=== PATIENT | male | born 1955 | race Caucasian/White ===

== ENCOUNTER 2018-08-09 15:54 | Outpatient (CLI) | payer OTHER ==
--- NOTE | 2018-08-10 15:45 | XRAY Report ---
Reason: TRAUMA ARTHROPATHY OF SPINE,THORACIC,NECK PAIN,LBP Procedure Date: 08/09/2018 Accession Number: [id number] / [id number] Procedure: XR - Thoracic Spine 3 View CPT Code: FULL RESULT: EXAM: THORACIC SPINE RADIOGRAPHY EXAM DATE: 08/09/2018 04:39 PM. CLINICAL HISTORY: Traumatic arthropathy of thoracic spine COMPARISON: None. TECHNIQUE: 3 views. FINDINGS: Alignment: Minimal right convex curvature centered at T4-T5. No spondylolisthesis. Bones: No fractures or bone lesions. Disks: Multilevel bridging anterolateral ossification of the mid/lower thoracic spine, compatible with diffuse idiopathic skeletal hyperostosis (DISH). Disk space heights are maintained. Soft Tissues: Normal. The visualized lungs and cardiomediastinal silhouette are normal. IMPRESSION: 1. Minimal right convex curvature of the upper thoracic spine. 2. Mid/lower thoracic spine DISH. 3. No acute bony abnormality. [facility]
--- NOTE | 2018-08-10 15:47 | XRAY Report ---
Reason: TRAUMA ARTHROPATHY OF SPINE,THORACIC,NECK PAIN,LBP Procedure Date: 08/09/2018 Accession Number: [id number] / [id number] Procedure: XR - Lumbar Spine Complete CPT Code: FULL RESULT: EXAM: LUMBOSACRAL SPINE RADIOGRAPHY EXAM DATE: 08/09/2018 04:39 PM. CLINICAL HISTORY: Low back pain. COMPARISONS: THORACIC SPINE 3 VIEW 08/09/2018 4:03 PM. TECHNIQUE: 4 views. FINDINGS: Alignment: Minimal left convex curvature centered at L1-L2 and right convex curvature centered at L4-L5. No spondylolisthesis. Bones: Five [id number] lumbar vertebral bodies are present. No fractures or bone lesions. Disks: Multilevel bridging anterolateral ossification from the visualized lower thoracic spine through L1-L2, compatible with diffuse idiopathic skeletal hyperostosis (DISH). Mild disk height loss and endplate degenerative change at L2-L3. Mild anterior end plate osteophytosis at L3-L4 through L5-S1. Facets: No significant degenerative changes. Sacroiliac Joints: Unremarkable. Soft Tissues: Normal. The visualized bowel gas pattern is normal. IMPRESSION: 1. Minimal S-shaped curvature of the lumbar spine. 2. Lower thoracic/upper lumbar spine DISH. 3. Mild degenerative disk disease, most pronounced at L2-L3. 4. No acute bony abnormality. [facility]
--- NOTE | 2018-08-11 13:20 | XRAY Report ---
Reason: TRAUMA ARTHROPATHY OF SPINE,THORACIC,NECK PAIN,LBP Procedure Date: 08/09/2018 Accession Number: [id number] / [id number] Procedure: XR - Cervical Spine 2 View CPT Code: FULL RESULT: EXAM: CERVICAL SPINE RADIOGRAPHY EXAM DATE: 08/09/2018 04:39 PM. CLINICAL HISTORY: Trauma arthropathy of spine, thoracic, neck pain, low back pain. COMPARISONS: None. TECHNIQUE: 3 views. FINDINGS: Alignment: Normal. No spondylolisthesis or scoliosis. Bones: The cervical vertebral bodies and posterior elements are well visualized from the skull base through C7-T1. No fractures or bone lesions. Disks: Degenerative disk disease is seen at C5-C6 with anterior osteophytosis. Facets: No degenerative disease. Soft Tissues: Partial ossification of presumably the nuchal ligament is seen. No prevertebral soft tissue swelling. The visualized lung apices are clear. IMPRESSION: Degenerative changes as described. [facility]
== END 2018-08-09 15:55 | disposition home or self-care (01) ==
LOC: DI 15:54
PROVIDERS: ATTEND Nurse Practitioner
DX: M48.14 Ankylosing hyperostosis [Forestier], thoracic region (principal); M48.16 Ankylosing hyperostosis [Forestier], lumbar region; M41.86 Other forms of scoliosis, lumbar region; M50.322 Other cervical disc degeneration at C5-C6 level
CPT/HCPCS: 72040; 72072; 72110

== ENCOUNTER 2019-11-02 08:00 | Outpatient (CLI) | payer MEDICARE, OTHER ==
[2019-11-02 11:37] LABS: BASOPHILS # (AUTO) 0.1 10^3/uL (0.0-0.1); EOSINOPHILS # (AUTO) 0.1 10^3/uL (0.0-0.7); EOSINOPHILS % (AUTO) 2.6 %; HGB - HEMOGLOBIN 15.5 g/dL (14.0-18.0); LYMPHOCYTES # (AUTO) 1.3 10^3/uL (1.5-3.5); LYMPHOCYTES % (AUTO) 25.8 %; MEAN CORPUSCULAR HEMOGLOBIN 32.5 pg (27.0-31.0); MEAN CORPUSCULAR HGB CONC 32.9 g/dL (32.0-36.0); MEAN CORPUSCULAR VOLUME 98.7 fL (80.0-94.0); MEAN PLATELET VOLUME 12.2 fL (7.4-11.4); MONOCYTES # (AUTO) 0.4 10^3/uL (0.0-1.0); MONOCYTES % (AUTO) 7.7 %; NEUTROPHILS # (AUTO) 3.2 10^3/uL (1.5-6.6); NEUTROPHILS % (AUTO) 62.5 %; PLT - PLATELET COUNT 132 10^3/uL (130-450); RED BLOOD COUNT 4.77 10^6/uL (4.70-6.10); RED CELL DISTRIBUTION WIDTH 12.1 % (12.0-15.0); WHITE BLOOD COUNT 5.1 x10^3/uL (4.8-10.8)
[2019-11-02 12:02] LABS: ALBUMIN 4.9 g/dL (3.2-5.5); ALBUMIN/GLOBULIN RATIO 1.8 (1.0-2.2); BILIRUBIN,TOTAL 1.1 mg/dL (0.2-1.0); CALCIUM 9.3 mg/dL (8.5-10.3); TOTAL PROTEIN 7.6 g/dL (6.7-8.2)
== END 2019-11-02 23:59 | disposition home or self-care (01) ==
LOC: LAB.WCP 08:00
PROVIDERS: ATTEND Family Medicine
DX: Z01.812 Encounter for preprocedural laboratory examination (principal)
CPT/HCPCS: 36415; 80053; 85025

== ENCOUNTER 2022-12-04 09:23 | Outpatient (CLI) | payer MEDICARE ==
[2022-12-04 09:46] LABS: BASOPHILS % (AUTO) 0.7 %; EOSINOPHILS # (AUTO) 0.1 10^3/uL (0.0-0.7); EOSINOPHILS % (AUTO) 1.6 %; HCT - HEMATOCRIT 45.9 % (42.0-52.0); HGB - HEMOGLOBIN 15.8 g/dL (14.0-18.0); LYMPHOCYTES # (AUTO) 1.2 10^3/uL (1.5-3.5); LYMPHOCYTES % (AUTO) 20.1 %; MEAN CORPUSCULAR HEMOGLOBIN 33.3 pg (27.0-31.0); MEAN CORPUSCULAR HGB CONC 34.4 g/dL (32.0-36.0); MEAN CORPUSCULAR VOLUME 96.6 fL (80.0-94.0); MONOCYTES # (AUTO) 0.4 10^3/uL (0.0-1.0); MONOCYTES % (AUTO) 7.1 %; NEUTROPHILS % (AUTO) 70.2 %; PLT - PLATELET COUNT 136 10^3/uL (130-450); RED BLOOD COUNT 4.75 10^6/uL (4.70-6.10); RED CELL DISTRIBUTION WIDTH 11.9 % (12.0-15.0); WHITE BLOOD COUNT 5.8 x10^3/uL (4.8-10.8)
[2022-12-04 09:54] LABS: ALBUMIN 4.7 g/dL (3.2-5.5); ALBUMIN/GLOBULIN RATIO 1.7 (1.0-2.2); ALKALINE PHOSPHATASE 55 IU/L (42-121); ALT ALANINE AMINOTRANSFERASE 28 IU/L (10-60); AST ASPARTATE AMINOTRANSFERASE 21 IU/L (10-42); BILIRUBIN,TOTAL 1.5 mg/dL (0.2-1.0); BUN - BLOOD UREA NITROGEN 16 mg/dL (6-20); CALCIUM 9.5 mg/dL (8.5-10.3); CARBON DIOXIDE - CO2 29 mmol/L (21-32); CHLORIDE 104 mmol/L (101-111); CHOL/HDL RATIO 3.7 (<5.0); CHOLESTEROL 161 mg/dL; CREATININE 1.1 mg/dL (0.6-1.3); GFR - MDRD 67 (>89); GLUCOSE 116 mg/dL (74-104); HDL CHOLESTEROL 43 mg/dL; LDL CHOLESTEROL,CALCULATED 88 mg/dL; POTASSIUM 4.8 mmol/L (3.5-4.5); SODIUM 138 mmol/L (135-145); TOTAL PROTEIN 7.4 g/dL (6.4-8.9); TRIGLYCERIDES 149 mg/dL (48-352); VLDL CHOLESTEROL 30 mg/dL
[2022-12-04 10:09] LABS: THYROID STIMULATING HORMONE 5.19 uIU/mL (0.34-5.60)
== END 2022-12-04 09:24 | disposition home or self-care (01) ==
LOC: LAB 09:23
PROVIDERS: ATTEND Nurse Practitioner Family
DX: Z00.00 Encounter for general adult medical examination without abnormal findings (principal); Z12.5 Encounter for screening for malignant neoplasm of prostate
CPT/HCPCS: 36415; 80053; 80061; 84443; 85025; G0103; 83721; 84153

== ENCOUNTER 2022-12-21 11:52 | Outpatient (CLI) | payer MEDICARE ==
[2022-12-21 12:23] LABS: CALCIUM 9.4 mg/dL (8.5-10.3); CREATININE 1.1 mg/dL (0.6-1.3); POTASSIUM 4.2 mmol/L (3.5-4.5)
== END 2022-12-21 11:53 | disposition home or self-care (01) ==
LOC: LAB 11:52
PROVIDERS: ATTEND Nurse Practitioner Family
DX: E87.5 Hyperkalemia (principal)
CPT/HCPCS: 36415; 80048